=== PATIENT | male | born 1985 | race Caucasian/White ===

== ENCOUNTER 2017-11-20 06:38 | Emergency (ER) | payer MEDICAID, OTHER ==
[2017-11-20] MEDS: KETOROLAC 30 MG INJ IM (07:37)
[2017-11-20] MEDS: predniSONE 20 MG TAB PO (07:37)
== END 2017-11-20 09:20 | disposition home or self-care (01) ==
LOC: FTE 06:38
DX: S39.92XA Unspecified injury of lower back, initial encounter (principal); W19.XXXA Unspecified fall, initial encounter; Y92.9 Unspecified place or not applicable
CPT/HCPCS: 72131; 96372; 99285-25

== ENCOUNTER 2018-09-05 17:38 | Emergency (ER) | payer MEDICAID ==
[2018-09-05] MEDS ORDERED: SUMATRIPTAN 6 MG/0.5 ML INJ SC (20:00)
[2018-09-05] MEDS ORDERED: PROCHLORPERAZINE 10 MG TAB PO (20:00)
== END 2018-09-05 20:09 | disposition home or self-care (01) ==
LOC: FTE 17:38
DX: J02.0 Streptococcal pharyngitis (principal)
CPT/HCPCS: 99283